=== PATIENT | female | born 1955 | race American Indian/Alaskan Native ===

== ENCOUNTER 2017-04-24 17:56 | Emergency (ER) | payer OTHER ==
[2017-04-24] MEDS ORDERED: ONDANSETRON 4 MG/2 ML VIAL IVP ONE (18:46)
[2017-04-24] MEDS ORDERED: NS 1,000 ML IV ONE (18:46)
[2017-04-24] MEDS ORDERED: KETOROLAC 30 MG/1 ML SDV IVP ONE (18:46)
--- NOTE | 2017-04-24 18:58 | EDPHY ---
H & P Stated Complaint: LEFT FLANK PAIN Source: Patient Exam Limitations: No limitations - Personal History Current Tetanus/Diphtheria Vaccine: Yes Current Tetanus Diphtheria and Acellular Pertussis (TDAP): Yes - Medical/Surgical History Hx Asthma: No Hx Chronic Respiratory Disease: No Hx Diabetes: No Hx Cardiac Disease: No Hx Renal Disease: No Hx Cirrhosis: No Hx Alcoholism: No Hx HIV/AIDS: No Hx Splenectomy or Spleen Trauma: No - Social History Smoking Status: Never smoked Time Seen by Provider: 04/24/17 18:55 HPI/ROS: HPI: This is a 62-year-old female who presents with Chief Complaint: Left flank pain Location: Left flank Quality: Pain Duration: 1-2 weeks Signs and Symptoms: no fever, + nausea, no vomiting, no hematemesis, no blood in stool, no abdominal bloating, no diarrhea, no back pain, no urinary symptoms , no vaginal bleeding/discharge, no indigestion, no chest pain, no shortness of breath Timing: Daily, constant Severity: Moderate to severe Context: Patient has a history of GERD presents with sudden onset of left upper flank pain that is constant in nature, moderate intensity, nonradiating. Nothing makes the pain better or worse. Denies any fever/chills/vomiting/ diarrhea/urinary symptoms. Patient thought at 1st it was her back but had no heavy lifting or injury. Patient reports that she went to a massage therapist and has been taking anti-inflammatories [id number] with no relief. She is eating and drinking normally. Denies chest pain/shortness of breath/ palpitations. No history of kidney stones. Patient reports that she has been drinking alcohol and eating rich fatty food over the last several days due to the holidays but normally is not a daily alcohol user. Modifying Factors: See above Comment: ROS: see HPI Constitutional: No fever, no chills, no weight loss Eyes: No blurred vision Respiratory: No shortness of breath, no cough Cardiovascular: No chest pain, no palpitations Gastrointestinal: No nausea, no vomiting, no diarrhea, no hematemesis, no blood in stool Genitourinary: No dysuria, no blood in urine Extremities: No myalgias, no edema Neurologic: No weakness, no numbness Skin: No rashes, no petechiae Hematologic: No bruising, no bleeding MEDICAL/SURGICAL/SOCIAL HISTORY: Medical history: Generally healthy. Does not take any regular medications. Surgical history: Denies Social history: Employed. CONSTITUTIONAL: Nontoxic appearing overweight female, awake and alert, no obvious distress HEENT: Atraumatic and normocephalic, PERRL, EOMI. Tympanic membranes clear. Oropharynx clear, no exudate and moist pink mucosa. Airway patent. No lymphadenopathy. No meningismus. Cardiovascular: Normal S1/S2, regular rate, regular rhythm, without murmur rub or gallop. PULMONARY/CHEST: Symmetrical and nontender. Clear to auscultation bilaterally. Good air movement. No accessory muscle usage. ABDOMEN: Soft, nondistended, nontender, no rebound, no guarding, no peritoneal signs, no masses or organomegaly. Left moderate CVAT. Hypoactive bowel sounds heard x4 quadrants. EXTREMITIES: 2/2 pulses, strength 5/5, no deformities, no clubbing, no cyanosis or edema. NEUROLOGICAL: no focal neuro deficits. GCS 15. SKIN: Warm and dry, no erythema. no rash. Good capillary refill. (Sheela Mills) Constitutional: Initial Vital Signs Temperature (C) 36.6 C 04/24/17 18:05 Heart Rate 91 04/24/17 18:05 Respiratory Rate 16 04/24/17 18:05 Blood Pressure 193/94 H 04/24/17 18:05 O2 Sat (%) 97 04/24/17 18:05 O2 Delivery Mode Room Air O2 (L/minute) 2 Allergies/Adverse Reactions: No Known Allergies Allergy (Unverified 04/24/17 18:05) Home Medications: Medication Instructions Recorded Nexium 04/24/17 Ondansetron Odt [Zofran Odt 4 mg 4 mg PO Q4 PRN #10 tab 04/24/17 (*)] oxyCODONE/APAP 5/325 [Percocet 1 - 2 tab PO Q4H PRN #12 tab 04/24/17 5/325 (*)] Medical Decision Making ED Course/Re-evaluation: Labs, urinalysis, IV fluids, IV medications, CT abdomen and pelvis scan ordered Vital signs reviewed upon arrival and no systemic signs. Given 1 L normal saline, IV Toradol, IV morphine with adequate relief of pain. 2000: Urinalysis shows RBCs and blood; no signs of infection Called by Radiology who advises that CT abdomen and pelvis scan shows No evidence of obstructive uropathy , moderately distended gallbladder without evidence of cholecystitis/cholelithiasis/common bile duct dilatation, no pancreatitis, + sigmoid diverticulosis without diverticulitis. Reassessed patient who reports that her left flank pain is considerably improved. Abdominal exam is soft and nontender. Patient has urinated several times while she has been in the emergency room waiting. She quite possibly could have passed a ureteral stone while in the ER. Other etiologies consist of musculoskeletal symptoms related to her thoracic back. Upper patient x-rays of her thoracic back and she politely declined she is feeling better. This patient was seen under the supervision of my secondary supervising physician. I evaluated care for this patient independently. Discussed this patient with Dr. Rojas who did not see the patient. atient's presentation, labs/imaging, treatment and plan of care were discussed with secondary supervising physician. (Sheela Mills) Differential Diagnosis: Abdominal pain including but not limited to appendicitis, cholecystitis, gastritis, kidney stones, spinal musculoskeletal symptoms, and urinary tract infection. (Sheela Mills) Other Provider: The patient was evaluated and managed by the Physician Field Crop Farming Supervisor. I discussed the patient's presentation and course with the physician medical lab assistant and agree with the evaluation. My co-signature indicates that I have reviewed this chart and I agree with the findings and plan of care as documented. I am the secondary supervising physician. (Danisha Rojas) - Data Points Laboratory Results: Laboratory Results 04/24/17 18:59 04/24/17 18:59 Medications Given: Discontinued Medications Cyclobenzaprine HCl (Flexeril 10 Mg Prepack#3) 1 btl TAKEHOME EDNOW ONE Stop: 04/24/17 21:26 Last Admin: 04/24/17 22:23 Dose: 1 btl Sodium Chloride (Ns) 1,000 mls @ 0 mls/hr IV ONCE ONE; Wide Open PRN Reason: Protocol Stop: 04/24/17 18:47 Last Admin: 04/24/17 19:07 Dose: 1,000 mls Ketorolac Tromethamine (Toradol) 30 mg IVP EDNOW ONE Stop: 04/24/17 18:47 Last Admin: 04/24/17 19:31 Dose: 30 mg Morphine Sulfate (Morphine) 4 mg IVP EDNOW ONE Stop: 04/24/17 18:48 Last Admin: 04/24/17 19:05 Dose: 4 mg Ondansetron HCl (Zofran) 4 mg IVP EDNOW ONE Stop: 04/24/17 18:47 Last Admin: 04/24/17 19:04 Dose: 4 mg Ondansetron HCl (Zofran Odt 4 Mg Prepack#2) 1 btl TAKEHOME EDNOW ONE Stop: 04/24/17 22:01 Last Admin: 04/24/17 22:24 Dose: 1 btl Oxycodone/Acetaminophen (Percocet 5/325mg Prepack#4) 1 btl TAKEHOME EDNOW ONE Stop: 04/24/17 21:26 Last Admin: 04/24/17 22:23 Dose: 1 btl Departure - Departure Disposition: Home, Routine, Self-Care Clinical Impression: Hematuria, microscopic, Acute left flank pain Condition: Good Instructions: Kidney Stones (ED), Low Fat Diet (ED), Hematuria (ED), Thoracic Pain (ED) Additional Instructions: Please rest as much as possible until you are feeling better. Drink a minimum of 8-10 glasses of water daily. Eat a low-fat diet and reduce your alcohol intake. Please follow-up with her primary care provider in the next 1-2 weeks. You need to repeat urinalysis to determine if your hematuria has cleared. If symptoms of nausea/food intolerance continue and/or worsen, you would benefit from a right upper quadrant ultrasound of your gallbladder outpatient. Referrals: UNKNOWN,DOCTOR [Other] - As per Instructions Prescriptions: Ondansetron Odt [Zofran Odt 4 mg (*)] 4 mg PO Q4 PRN #10 tab PRN Reason: Nausea/Vomiting, Use 1st oxyCODONE/APAP 5/325 [Percocet 5/325 (*)] 1 - 2 tab PO Q4H PRN #12 tab PRN Reason: Pain, Severe
[2017-04-24 19:15] LABS: PLATELET COUNT 191 10^3/uL (150-400)
[2017-04-24] MEDS ORDERED: IOPAMIDOL (ISOVUE-300) 100 ML BTL ONE (19:57)
[2017-04-24 20:31] VITALS: PULSE 89
[2017-04-24] MEDS ORDERED: CYCLOBENZAPRINE 10MG PREPACK#3 BTL TAKEHOME ONE (21:25)
[2017-04-24] MEDS ORDERED: OXYCODONE/APAP 5/325MG PREPACK#4 BTL TAKEHOME ONE (21:25)
[2017-04-24] MEDS ORDERED: ONDANSETRON 4MG PREPACK#2 BTL TAKEHOME ONE (22:00)
[2017-04-24 22:28] VITALS: BP 180/78; RESP 16; TEMP 99.3; O2SAT 93
== END 2017-04-24 22:27 | disposition home or self-care (01) ==
DX: R31.29 Other microscopic hematuria (principal); E86.9 Volume depletion, unspecified
CPT/HCPCS: 96374; J1885; J2405; Q9967